=== PATIENT | female | born 1985 | race Caucasian/White ===

== ENCOUNTER 2018-01-06 12:28 | Outpatient (CLI) | payer OTHER ==
--- NOTE | 2018-01-07 13:33 | XRAY Report ---
Reason: RIGHT HAND DIGIT #5 SWELLING AND LIMITED ROM Procedure Date: 01/06/2018 Accession Number: [id number] / [id number] Procedure: XR - Hand 3 View RT CPT Code: FULL RESULT: EXAM: RIGHT HAND RADIOGRAPHY EXAM DATE: 01/06/2018 12:46 PM. CLINICAL HISTORY: RIGHT HAND DIGIT 5 SWELLING AND LIMITED ROM. COMPARISON: None. TECHNIQUE: 3 views. FINDINGS: Bones: Tiny avulsion fracture seen on the lateral view at the base of the fifth middle phalanx at the palmar aspect of the PIP. Joints: No subluxations. Soft Tissues: Unremarkable. IMPRESSION: Tiny avulsion fracture at the base of the fifth middle phalanx. [facility]
== END 2018-01-06 12:29 | disposition home or self-care (01) ==
LOC: DI 12:28
PROVIDERS: ATTEND Nurse Practitioner Family
DX: S62.626A Displaced fracture of middle phalanx of right little finger, initial encounter for closed fracture (principal)

== ENCOUNTER 2019-02-08 09:47 | Day surgery (SDC) | payer OTHER ==
[2019-02-08] MEDS ORDERED: LACTATED RINGERS 1,000 ML IV ONE ×2 (10:07→12:11)
[2019-02-08 11:27] LABS: HCG UR QUAL NEGATIVE
[2019-02-08] MEDS ORDERED: MIDAZOLAM 2 MG/2 ML VIAL IVP ONE (12:00)
[2019-02-08] MEDS ORDERED: fentaNYL 250 MCG/5 ML VIAL IVP ONE (12:00)
[2019-02-08 12:47] VITALS: BP 103/61
== END 2019-02-08 09:48 | disposition home or self-care (01) ==
LOC: SDS 09:47
PROVIDERS: ATTEND Surgery
PROC: 0DJD8ZZ Inspection of Lower Intestinal Tract, Via Natural or Artificial Opening Endoscopic (ICD-10-PCS; principal; 2019-02-08 11:15)
DX: Z12.11 Encounter for screening for malignant neoplasm of colon (principal); Z80.0 Family history of malignant neoplasm of digestive organs; K64.8 Other hemorrhoids
CPT/HCPCS: 45378; 81025; J3010; J7120